=== PATIENT | female | born 1985 | race American Indian/Alaskan Native ===

== ENCOUNTER 2019-01-11 22:53 | Emergency (ER) | payer OTHER ==
--- NOTE | 2019-01-11 23:37 | Emergency Department Report ---
HPI - General Chief Complaint: Dizziness Time Seen by Provider: 01/11/19 23:29 - [facility] HPI: [place] 11 The patient is a 33-year-old female presenting with a chief complaint of feeling off balance and shortness of breath. The patient states for approximately days she has felt off balance but denies vertigo. Patient dishes also had intermittent shortness of breath but denies cough or chest pain. Patient denies headache fever nausea or vomiting. Patient denies previous episodes of same. Patient denies suicidal or homicidal ideation. Patient denies auditory or visual hallucinations. Location: [See above] Duration: [See above] Quality: [See above] Severity: [See above] Modifying factors: [see above] Context: [see above] Mode of transportation: [not driving] ED Past Medical Hx - Past Medical History Hx Psychiatric Treatment: Yes (schizoaffective disorder) Additional medical history: Beta thalassemia - Surgical History Past Surgical History?: No - Family History Family history: no significant - Social History Smoking Status: Current Every Day Smoker (1/2 pack per day) Substance Use Type: None (denies illicit drug use), Alcohol (occasional) - Medications Home Medications: Home Medications Medication Instructions Recorded Confirmed Last Taken Type Meclizine [Antivert] 25 mg PO TID PRN #20 tablet 01/12/19 Unknown Rx ED Review of Systems ROS: Stated complaint: WALKING FUNNY Other details as noted in HPI Constitutional: denies: fever Eyes: denies: eye pain ENT: denies: throat pain Respiratory: shortness of breath. denies: cough Cardiovascular: denies: chest pain Endocrine: no symptoms reported Gastrointestinal: denies: nausea, vomiting Genitourinary: denies: dysuria Musculoskeletal: denies: back pain Neurological: other (feels off balance). denies: headache, vertigo Psychiatric: denies: auditory hallucinations, visual hallucinations, homicidal thoughts, suicidal thoughts Physical Exam - Physical Exam Vital Signs: Laboratory Tests 01/12/19 01/12/19 01/12/19 00:08 00:08 00:08 WBC 7.2 RBC 4.11 Hgb 10.7 Hct 32.5 MCV 79 MCH 26 L MCHC 33 RDW 14.1 Plt Count 193 Lymph % (Auto) 34.0 Mills % (Auto) 8.3 H Eos % (Auto) 2.7 Baso % (Auto) 1.0 Lymph # 2.4 Mills # 0.6 Eos # 0.2 Baso # 0.1 Seg Neutrophils % 54.0 Seg Neutrophils # 3.9 D-Dimer Sodium 139 Potassium 3.9 Chloride 103.6 Carbon Dioxide 23 Anion Gap 16 BUN 9 Creatinine 0.6 L Estimated GFR > 60 BUN/Creatinine Ratio 15 Glucose 93 Calcium 9.2 Magnesium 1.80 Total Bilirubin 0.30 AST 10 ALT 8 Alkaline Phosphatase 70 Total Creatine Kinase CK-MB (CK-2) CK-MB (CK-2) Rel Index Troponin T NT-Pro-B Natriuret Pep Total Protein 6.4 Albumin 4.0 Albumin/Globulin Ratio 1.7 TSH 0.888 Free T4 1.05 HCG, Qual Urine Color Urine Turbidity Urine pH Ur Specific [place] Urine Protein Urine Glucose (UA) Urine Ketones Urine Blood Urine Nitrite Urine Bilirubin Urine Urobilinogen Ur Leukocyte Esterase Urine WBC (Auto) Urine RBC (Auto) U Epithel Cells (Auto) Urine Mucus Salicylates Urine Opiates Screen Urine Methadone Screen Acetaminophen Ur Barbiturates Screen Valproic Acid Ur Phencyclidine Scrn Ur Amphetamines Screen U Benzodiazepines Scrn Urine Cocaine Screen U Marijuana (THC) Screen Drugs of Abuse Note Plasma/Serum Alcohol 01/12/19 01/12/19 01/12/19 00:08 00:08 00:08 WBC RBC Hgb Hct MCV MCH MCHC RDW Plt Count Lymph % (Auto) Mills % (Auto) Eos % (Auto) Baso % (Auto) Lymph # Mills # Eos # Baso # Seg Neutrophils % Seg Neutrophils # D-Dimer Sodium Potassium Chloride Carbon Dioxide Anion Gap BUN Creatinine Estimated GFR BUN/Creatinine Ratio Glucose Calcium Magnesium Total Bilirubin AST ALT Alkaline Phosphatase Total Creatine Kinase CK-MB (CK-2) CK-MB (CK-2) Rel Index Troponin T NT-Pro-B Natriuret Pep Total Protein Albumin Albumin/Globulin Ratio TSH Free T4 HCG, Qual Urine Color Urine Turbidity Urine pH Ur Specific [place] Urine Protein Urine Glucose (UA) Urine Ketones Urine Blood Urine Nitrite Urine Bilirubin Urine Urobilinogen Ur Leukocyte Esterase Urine WBC (Auto) Urine RBC (Auto) U Epithel Cells (Auto) Urine Mucus Salicylates < 0.3 L Urine Opiates Screen Urine Methadone Screen Acetaminophen < 5.0 L Ur Barbiturates Screen Valproic Acid 19.0 L Ur Phencyclidine Scrn Ur Amphetamines Screen U Benzodiazepines Scrn Urine Cocaine Screen U Marijuana (THC) Screen Drugs of Abuse Note Plasma/Serum Alcohol < 0.01 01/12/19 01/12/19 01/12/19 00:08 00:08 00:08 WBC RBC Hgb Hct MCV MCH MCHC RDW Plt Count Lymph % (Auto) Mills % (Auto) Eos % (Auto) Baso % (Auto) Lymph # Mills # Eos # Baso # Seg Neutrophils % Seg Neutrophils # D-Dimer 228.31 Sodium Potassium Chloride Carbon Dioxide Anion Gap BUN Creatinine Estimated GFR BUN/Creatinine Ratio Glucose Calcium Magnesium Total Bilirubin AST ALT Alkaline Phosphatase Total Creatine Kinase 89 CK-MB (CK-2) < 1.0 CK-MB (CK-2) Rel Index 1.1 Troponin T < 0.010 NT-Pro-B Natriuret Pep 30.82 Total Protein Albumin Albumin/Globulin Ratio TSH Free T4 HCG, Qual Negative Urine Color Urine Turbidity Urine pH Ur Specific [place] Urine Protein Urine Glucose (UA) Urine Ketones Urine Blood Urine Nitrite Urine Bilirubin Urine Urobilinogen Ur Leukocyte Esterase Urine WBC (Auto) Urine RBC (Auto) U Epithel Cells (Auto) Urine Mucus Salicylates Urine Opiates Screen Urine Methadone Screen Acetaminophen Ur Barbiturates Screen Valproic Acid Ur Phencyclidine Scrn Ur Amphetamines Screen U Benzodiazepines Scrn Urine Cocaine Screen U Marijuana (THC) Screen Drugs of Abuse Note Plasma/Serum Alcohol 01/12/19 01/12/19 01:08 01:08 WBC RBC Hgb Hct MCV MCH MCHC RDW Plt Count Lymph % (Auto) Mills % (Auto) Eos % (Auto) Baso % (Auto) Lymph # Mills # Eos # Baso # Seg Neutrophils % Seg Neutrophils # D-Dimer Sodium Potassium Chloride Carbon Dioxide Anion Gap BUN Creatinine Estimated GFR BUN/Creatinine Ratio Glucose Calcium Magnesium Total Bilirubin AST ALT Alkaline Phosphatase Total Creatine Kinase CK-MB (CK-2) CK-MB (CK-2) Rel Index Troponin T NT-Pro-B Natriuret Pep Total Protein Albumin Albumin/Globulin Ratio TSH Free T4 HCG, Qual Urine Color Yellow Urine Turbidity Slightly-cloudy Urine pH 6.0 Ur Specific [place] 1.016 Urine Protein <15 mg/dl Urine Glucose (UA) Neg Urine Ketones Neg Urine Blood Neg Urine Nitrite Neg Urine Bilirubin Neg Urine Urobilinogen < 2.0 Ur Leukocyte Esterase Neg Urine WBC (Auto) 2.0 Urine RBC (Auto) 4.0 U Epithel Cells (Auto) 6.0 Urine Mucus 1+ Salicylates Urine Opiates Screen Presumptive negative Urine Methadone Screen Presumptive negative Acetaminophen Ur Barbiturates Screen Presumptive negative Valproic Acid Ur Phencyclidine Scrn Presumptive negative Ur Amphetamines Screen Presumptive negative U Benzodiazepines Scrn Presumptive negative Urine Cocaine Screen Presumptive negative U Marijuana (THC) Screen Presumptive positive Drugs of Abuse Note Disclamer Plasma/Serum Alcohol Physical Exam: GENERAL: The patient is well-developed well-nourished female sitting on stretcher not appearing to be in acute distress. Flat Affect HEENT: Normocephalic. Atraumatic. Extraocular motions are intact. Patient has moist mucous membranes. No nystagmus noted NECK: Supple. No meningitic signs are noted. Trachea midline CHEST/LUNGS: Clear to auscultation. There is no respiratory distress noted. HEART/CARDIOVASCULAR: Regular. There is no tachycardia. There is no gallop rub or murmur. ABDOMEN: Abdomen is soft, nontender. Patient has normal bowel sounds. There is no abdominal distention. SKIN: There is no rash. There is no edema. There is no diaphoresis. NEURO: The patient is awake, alert, and oriented. The patient is cooperative. The patient has no focal neurologic deficits. The patient has normal speech. Cranial nerves II through XII grossly intact, no drift. No dysmetria noted with [id number] bilaterally. Patient is able to ambulate but then appears to lean forward at the waist but never fall to the ground. Patient then turns around comes back and sits on the bed. MUSCULOSKELETAL: There is no evidence of acute injury. ED Medical Decision Making - Lab Data Result diagrams: 01/12/19 00:08 01/12/19 00:08 Laboratory Tests 01/12/19 01/12/19 01/12/19 00:08 00:08 00:08 WBC 7.2 RBC 4.11 Hgb 10.7 Hct 32.5 MCV 79 MCH 26 L MCHC 33 RDW 14.1 Plt Count 193 Lymph % (Auto) 34.0 Mills % (Auto) 8.3 H Eos % (Auto) 2.7 Baso % (Auto) 1.0 Lymph # 2.4 Mills # 0.6 Eos # 0.2 Baso # 0.1 Seg Neutrophils % 54.0 Seg Neutrophils # 3.9 D-Dimer Sodium 139 Potassium 3.9 Chloride 103.6 Carbon Dioxide 23 Anion Gap 16 BUN 9 Creatinine 0.6 L Estimated GFR > 60 BUN/Creatinine Ratio 15 Glucose 93 Calcium 9.2 Magnesium 1.80 Total Bilirubin 0.30 AST 10 ALT 8 Alkaline Phosphatase 70 Total Creatine Kinase CK-MB (CK-2) CK-MB (CK-2) Rel Index Troponin T NT-Pro-B Natriuret Pep Total Protein 6.4 Albumin 4.0 Albumin/Globulin Ratio 1.7 TSH 0.888 Free T4 1.05 HCG, Qual Urine Color Urine Turbidity Urine pH Ur Specific [place] Urine Protein Urine Glucose (UA) Urine Ketones Urine Blood Urine Nitrite Urine Bilirubin Urine Urobilinogen Ur Leukocyte Esterase Urine WBC (Auto) Urine RBC (Auto) U Epithel Cells (Auto) Urine Mucus Salicylates Urine Opiates Screen Urine Methadone Screen Acetaminophen Ur Barbiturates Screen Valproic Acid Ur Phencyclidine Scrn Ur Amphetamines Screen U Benzodiazepines Scrn Urine Cocaine Screen U Marijuana (THC) Screen Drugs of Abuse Note Plasma/Serum Alcohol 01/12/19 01/12/19 01/12/19 00:08 00:08 00:08 WBC RBC Hgb Hct MCV MCH MCHC RDW Plt Count Lymph % (Auto) Mills % (Auto) Eos % (Auto) Baso % (Auto) Lymph # [place] # Eos # Baso # Seg Neutrophils % Seg Neutrophils # D-Dimer Sodium Potassium Chloride Carbon Dioxide Anion Gap BUN Creatinine Estimated GFR BUN/Creatinine Ratio Glucose Calcium Magnesium Total Bilirubin AST ALT Alkaline Phosphatase Total Creatine Kinase CK-MB (CK-2) CK-MB (CK-2) Rel Index Troponin T NT-Pro-B Natriuret Pep Total Protein Albumin Albumin/Globulin Ratio TSH Free T4 HCG, Qual Urine Color Urine Turbidity Urine pH Ur Specific [place] Urine Protein Urine Glucose (UA) Urine Ketones Urine Blood Urine Nitrite Urine Bilirubin Urine Urobilinogen Ur Leukocyte Esterase Urine WBC (Auto) Urine RBC (Auto) U Epithel Cells (Auto) Urine Mucus Salicylates < 0.3 L Urine Opiates Screen Urine Methadone Screen Acetaminophen < 5.0 L Ur Barbiturates Screen Valproic Acid 19.0 L Ur Phencyclidine Scrn Ur Amphetamines Screen U Benzodiazepines Scrn Urine Cocaine Screen U Marijuana (THC) Screen Drugs of Abuse Note Plasma/Serum Alcohol < 0.01 01/12/19 01/12/19 01/12/19 00:08 00:08 00:08 WBC RBC Hgb Hct MCV MCH MCHC RDW Plt Count Lymph % (Auto) Mills % (Auto) Eos % (Auto) Baso % (Auto) Lymph # [place] # Eos # Baso # Seg Neutrophils % Seg Neutrophils # D-Dimer 228.31 Sodium Potassium Chloride Carbon Dioxide Anion Gap BUN Creatinine Estimated GFR BUN/Creatinine Ratio Glucose Calcium Magnesium Total Bilirubin AST ALT Alkaline Phosphatase Total Creatine Kinase 89 CK-MB (CK-2) < 1.0 CK-MB (CK-2) Rel Index 1.1 Troponin T < 0.010 NT-Pro-B Natriuret Pep 30.82 Total Protein Albumin Albumin/Globulin Ratio TSH Free T4 HCG, Qual Negative Urine Color Urine Turbidity Urine pH Ur Specific [place] Urine Protein Urine Glucose (UA) Urine Ketones Urine Blood Urine Nitrite Urine Bilirubin Urine Urobilinogen Ur Leukocyte Esterase Urine WBC (Auto) Urine RBC (Auto) U Epithel Cells (Auto) Urine Mucus Salicylates Urine Opiates Screen Urine Methadone Screen Acetaminophen Ur Barbiturates Screen Valproic Acid Ur Phencyclidine Scrn Ur Amphetamines Screen U Benzodiazepines Scrn Urine Cocaine Screen U Marijuana (THC) Screen Drugs of Abuse Note Plasma/Serum Alcohol 01/12/19 07 01:08 01:08 WBC RBC Hgb Hct MCV MCH MCHC RDW Plt Count Lymph % (Auto) Mills % (Auto) Eos % (Auto) Baso % (Auto) Lymph # [place] # Eos # Baso # Seg Neutrophils % Seg Neutrophils # D-Dimer Sodium Potassium Chloride Carbon Dioxide Anion Gap BUN Creatinine Estimated GFR BUN/Creatinine Ratio Glucose Calcium Magnesium Total Bilirubin AST ALT Alkaline Phosphatase Total Creatine Kinase CK-MB (CK-2) CK-MB (CK-2) Rel Index Troponin T NT-Pro-B Natriuret Pep Total Protein Albumin Albumin/Globulin Ratio TSH Free T4 HCG, Qual Urine Color Yellow Urine Turbidity Slightly-cloudy Urine pH 6.0 Ur Specific [place] 1.016 Urine Protein <15 mg/dl Urine Glucose (UA) Neg Urine Ketones Neg Urine Blood Neg Urine Nitrite Neg Urine Bilirubin Neg Urine Urobilinogen < 2.0 Ur Leukocyte Esterase Neg Urine WBC (Auto) 2.0 Urine RBC (Auto) 4.0 U Epithel Cells (Auto) 6.0 Urine Mucus 1+ Salicylates Urine Opiates Screen Presumptive negative Urine Methadone Screen Presumptive negative Acetaminophen Ur Barbiturates Screen Presumptive negative Valproic Acid Ur Phencyclidine Scrn Presumptive negative Ur Amphetamines Screen Presumptive negative U Benzodiazepines Scrn Presumptive negative Urine Cocaine Screen Presumptive negative U Marijuana (THC) Screen Presumptive positive Drugs of Abuse Note Disclamer Plasma/Serum Alcohol - EKG Data -: EKG Interpreted by Me EKG shows normal: sinus rhythm Rate: normal - EKG Data When compared to previous EKG there are: previous EKG unavailable Interpretation: other (no ischemic changes seen) - Radiology Data Radiology results: report reviewed (CT head), image reviewed (CT head, chest x- ray) interpreted by me: Chest x-ray-no focal infiltrates, no pneumothorax [facility] [address] [place] [address] Cat Scan Report Signed Patient: SIM CLEVELAND MR# : [id number] : 1985 Acct:[id number] Age/Sex: 33 / F ADM Date: 01/11/19 Loc: ED Attending Dr: Ordering Physician: NANCI CAMACHO MD Date of Service: 01/12/19 Procedure(s): CT head/brain wo con Accession Number(s): [id number] cc: NANCI CAMACHO MD PROCEDURE: CT HEAD/BRAIN WO CON TECHNIQUE: Computerized tomography of the head was performed without contrast material. HISTORY: feels off balance COMPARISONS: 07/02/2010 . FINDINGS: The cerebral hemispheres appear normal wit hout focal lesions. There is no evidence of acute infarct or intracranial hemorrhage. The ventricles and sulci appear normal for age. There are no abnormal extra-axial fluid collections. The posterior fossa appears normal. The skull and orbits are unremarkable. The visualized paranasal sinuses are clear. IMPRESSION: Normal CT of the head . This document is electronically signed by Cliff Patel MD., January 12 2019 02:31:08 AM ET Transcribed By: MLG Dictated By: CLIFF PATEL MD Electronically Authenticated By: CLIFF PATEL MD Signed Date/Time: 01/12/19231 DD/ 2 TD/TT: 01/12/19142 - Differential Diagnosis Depakote toxicity, vertigo, intracranial mass, PE, bronchitis Critical care attestation.: If time is entered above; I have spent that time in minutes in the direct care of this critically ill patient, excluding procedure time. ED Disposition Clinical Impression: Dehydration Disposition: DC-01 TO HOME OR SELFCARE Is pt being admited?: No Does the pt Need Aspirin: No Condition: Stable Instructions: Vertigo (ED) Additional Instructions: Return to the emergency department immediately should you develop worsening symptoms, fever, inability to tolerate food or liquid or any other concerns. Prescriptions: Meclizine [Antivert] 25 mg PO TID PRN #20 tablet PRN Reason: Vertigo Referrals: MARC FRANCE MD [Primary Care Provider] - 3-5 Days Time of Disposition: 05:47
[2019-01-12 00:47] LABS: Basophils # (Auto) 0.1 K/mm3 (0.0-0.1); Eosinophils # (Auto) 0.2 K/mm3 (0.0-0.4); Eosinophils % (Auto) 2.7 % (0.0-4.3); Hematocrit 32.5 % (30.3-42.9); Hemoglobin 10.7 gm/dl (10.1-14.3); Lymphocytes # (Auto) 2.4 K/mm3 (1.2-5.4); Mean Corpuscular HGB Conc 33 % (30-34); Mean Corpuscular Volume 79 fl (79-97); Monocytes # (Auto) 0.6 K/mm3 (0.0-0.8); Monocytes % (Auto) 8.3 % (0.0-7.3); Platelet Count 193 K/mm3 (140-440); Red Blood Count 4.11 M/mm3 (3.65-5.03); Red Cell Distribution Width 14.1 % (13.2-15.2)
[2019-01-12 01:07] LABS: Alanine Aminotransferase 8 units/L (7-56); BUN/Creatinine Ratio 15; Blood Urea Nitrogen 9 mg/dL (7-17); Calcium 9.2 mg/dL (8.4-10.2); Hemolysis Index 5
[2019-01-12 01:11] LABS: Creatine Kinase MB < 1.0 ng/mL (0.0-4.0)
[2019-01-12 01:13] LABS: Free T4 (Free Thyroxine) 1.05 ng/dL (0.76-1.46)
[2019-01-12 02:06] LABS: Bilirubin,Urine NEG (Negative); Blood,Urine NEG (Negative); Color,Urine Yellow (Yellow); Mucus,Urine 1+ /HPF; Protein,Urine <15 mg/dL mg/dL (Negative); Urobilinogen,Urine < 2.0 mg/dL (<2.0)
--- NOTE | 2019-01-12 02:32 | Cat Scan Report ---
PROCEDURE: CT HEAD/BRAIN WO CON TECHNIQUE: Computerized tomography of the head was performed without contrast material. HISTORY: feels off balance COMPARISONS: 07/02/2010 . FINDINGS: The cerebral hemispheres appear normal without focal lesions. There is no evidence of acute infarct or intracranial hemorrhage. The ventricles and sulci appear normal for age. There are no abn ormal extra-axial fluid collections. The posterior fossa appears normal. The skull and orbits are unr emarkable. The visualized paranasal sinuses are clear. IMPRESSION: Normal CT of the head . This document is electronically signed by Rhonda Patel MD., January 12 2019 02:31:08 AM ET
[2019-01-12 03:16] LABS: Amphetamine Screen,Urine PRESUMPTIVE NEGATIVE; Benzodiazepines Screen,Urine PRESUMPTIVE NEGATIVE; Cocaine Screen,Urine PRESUMPTIVE NEGATIVE; Methadone Screen,Urine PRESUMPTIVE NEGATIVE; Opiate Screen,Urine PRESUMPTIVE NEGATIVE
[2019-01-12 03:52] VITALS: BP 112/70
[2019-01-12 03:58] LABS: Cannabinoid Screen,Urine PRESUMPTIVE POSITIVE
[2019-01-12] MEDS ORDERED: NACL 0.9% 1000 ML 1,000 ML IV ONE (04:25)
--- NOTE | 2019-01-12 04:35 | XRay Report ---
PROCEDURE: XR CHEST ROUTINE 2V TECHNIQUE: PA and lateral chest radiographs were obtained. HISTORY: shortness of breath COMPARISONS: None. FINDINGS: No mediastinal shift. Cardiac silhouette is not enlarged. No pneumothorax or definite effusion. Pat bree posterior right lower lung opacity. No acute skeletal finding. IMPRESSION: Posterior right lower lung infiltrate. This document is electronically signed by Bryan Chu MD., January 12 2019 04:33:05 AM ET
== END 2019-01-12 06:09 | disposition home or self-care (01) ==
LOC: ED 22:53
DX: R06.02 Shortness of breath (principal); R26.89 Other abnormalities of gait and mobility; E86.0 Dehydration; F17.200 Nicotine dependence, unspecified, uncomplicated; F25.9 Schizoaffective disorder, unspecified
CPT/HCPCS: 36415; 70450; 71046; 80053; 80164; 80307; 81001; 82550; 82553; 83735; 83880; 84439; 84443; 84484; 84703; 85025; 85379; 93005; 93010; 96360; 99285; G0480; J7030; 80320

== ENCOUNTER 2019-01-12 16:33 | Emergency (ER) | payer OTHER ==
[2019-01-12] MEDS ORDERED: TORADOL IM ONE (20:26)
[2019-01-12] MEDS ORDERED: DELTASONE PO ONE (20:26)
[2019-01-12 21:13] VITALS: BP 99/68
--- NOTE | 2019-01-13 02:11 | Cat Scan Report ---
CT lumbar spine wo con INDICATION / CLINICAL INFORMATION: BACK PAIN. TECHNIQUE: Axial CT imaging of the lumbar spine was obtained without IV contrast. Coronal and sagittal reformatt ed imaging obtained and reviewed. All CT scans at this location are performed using CT dose reduction for ALARA by means of automated exposure control. COMPARISON: None available. FINDINGS: Vertebral body heights and disc spaces are preserved. Alignment is normal. I see no evidence for lumb ar spine fracture or traumatic malalignment. Surrounding paravertebral soft tissues are unremarkable. No obvious large disc herniation. If disc herniation is a clinical concern, MRI is suggested. IMPRESSION: 1. Negative lumbar spine CT. Signer Name: Karen Rivera MD Signed: 01/13/2019 2:06 AM Workstation Name: [employer]
--- NOTE | 2019-01-13 02:38 | Emergency Department Report ---
ED General Adult HPI - General Chief complaint: Weakness Stated complaint: WEAKNESS Source: patient Mode of arrival: Wheelchair Limitations: No Limitations - History of Present Illness Initial comments: Patient is a 33-year-old female with a history of schizoaffective schizophrenia, and chronic low back pain who presents to the ED with acute exacerbation of her chronic pain that radiates bilaterally to the lower extremities for the last 1 week worse in the last 2 days. Patient states that the pain is constant but the radiation is intermittent. Patient denies hematuria, fall, dysuria, urinary frequency and urgency, history of lifting, traumatic injury, neck pain, abdominal pain, bilateral lower extremity weakness or urinary and bowel incontinence or saddle paresthesia MD Complaint: Back pain -: Gradual, year(s) Location: back Radiation: other (radiates to lower extremities) Severity scale (0 -10): 10 Quality: aching, sharp Consistency: constant Improves with: medication, rest Worsens with: movement Associated Symptoms: denies other symptoms. denies: confusion, chest pain, cough, diaphoresis, fever/chills, headaches, loss of appetite, malaise, shortness of breath, syncope, weakness, other Treatments Prior to Arrival: none - Related Data Previous Rx's Medication Instructions Recorded Last Taken Type Meclizine [Antivert] 25 mg PO TID PRN #20 tablet 01/12/19 Unknown Rx Gabapentin [Neurontin] 300 mg PO Q12H #30 cap 01/13/19 Unknown Rx Ibuprofen [Motrin] 800 mg PO Q8HR PRN #20 tablet 01/13/19 Unknown Rx Tizanidine HCl [Zanaflex 4mg CAP] 4 mg PO Q8H PRN #21 capsule 01/13/19 Unknown Rx predniSONE [Deltasone] 60 mg PO QDAY #15 tab 01/13/19 Unknown Rx Allergies Allergy/AdvReac Type Severity Reaction Status Date / Time No Known Allergies Allergy Verified 01/11/19 23:25 ED Review of Systems ROS: Stated complaint: WEAKNESS Other details as noted in HPI Constitutional: no symptoms reported. denies: chills, fever Eyes: denies: eye pain, eye discharge, vision change ENT: denies: ear pain, throat pain Respiratory: denies: cough, shortness of breath, wheezing Cardiovascular: denies: chest pain, palpitations Endocrine: no symptoms reported Gastrointestinal: denies: abdominal pain, nausea, diarrhea Genitourinary: denies: urgency, dysuria, discharge Musculoskeletal: back pain, arthralgia, myalgia. denies: joint swelling Skin: denies: rash, lesions Neurological: denies: headache, weakness, paresthesias Psychiatric: denies: anxiety, depression Hematological/Lymphatic: denies: easy bleeding, easy bruising ED Past Medical Hx - Past Medical History Previous Medical History?: Yes Hx Psychiatric Treatment: Yes (schizoaffective disorder) Additional medical history: Beta thalassemia - Social History Smoking Status: Current Every Day Smoker Substance Use Type: None - Medications Home Medications: Home Medications Medication Instructions Recorded Confirmed Last Taken Type Meclizine [Antivert] 25 mg PO TID PRN #20 tablet 01/12/19 Unknown Rx Gabapentin [Neurontin] 300 mg PO Q12H #30 cap 01/13/19 Unknown Rx Ibuprofen [Motrin] 800 mg PO Q8HR PRN #20 tablet 01/13/19 Unknown Rx Tizanidine HCl [Zanaflex 4mg CAP] 4 mg PO Q8H PRN #21 capsule 01/13/19 Unknown Rx predniSONE [Deltasone] 60 mg PO QDAY #15 tab 01/13/19 Unknown Rx ED Physical Exam - General Limitations: No Limitations General appearance: alert, in no apparent distress - Head Head exam: Present: atraumatic, normocephalic, normal inspection - Eye Eye exam: Present: normal appearance, PERRL, EOMI - ENT ENT exam: Present: normal exam, normal orophraynx, mucous membranes moist, TM's normal bilaterally - Neck Neck exam: Present: normal inspection, full ROM - Respiratory Respiratory exam: Present: normal lung sounds bilaterally. Absent: respiratory distress, wheezes, rales, chest wall tenderness, accessory muscle use, decreased breath sounds, prolonged expiratory - Cardiovascular Cardiovascular Exam: Present: regular rate, normal rhythm, normal heart sounds. Absent: systolic murmur, diastolic murmur, rubs, gallop - GI/Abdominal GI/Abdominal exam: Present: soft, normal bowel sounds. Absent: tenderness, guarding, rebound, hyperactive bowel sounds, hypoactive bowel sounds, organomegaly - Rectal Rectal exam: Present: deferred - Extremities Exam Extremities exam: Present: normal inspection - Back Exam Back exam: Present: normal inspection, tenderness (palpable lumbosacral paraspinal musculoskeletal tenderness), muscle spasm, paraspinal tenderness - Neurological Exam Neurological exam: Present: alert, oriented X3, CN II-XII intact, normal gait, reflexes normal - Psychiatric Psychiatric exam: Present: normal affect, normal mood, anxious - Skin Skin exam: Present: warm, dry, intact, normal color. Absent: rash ED Course Vital Signs 01/12/19 01/12/19 01/12/19 16:48 21:12 21:48 Temperature 98.3 F 98.3 F Pulse Rate 89 73 Respiratory 18 16 18 Rate Blood Pressure 112/83 Blood Pressure 99/68 [Right] O2 Sat by Pulse 100 99 Oximetry - Reevaluation(s) Reevaluation #1: 01/13/19 02:39 Patient is alert and oriented 3 and is not in distress with pain. Patient was treated for pain in the ED and L-spine CT scanning without contrast shows no acute fractures or subluxations. On reevaluation, patient's pain is well controlled and fell asleep in the room but arousable. ED Medical Decision Making - Radiology Data Radiology results: report reviewed, image reviewed L-Spine CT Scan w/o contrast shows no acute fractures or subluxations - Medical Decision Making Patient is alert and oriented 3 and is not in distress with pain. Patient was treated for pain in the ED and L-spine CT scanning without contrast shows no acute fractures or subluxations. On reevaluation, patient's pain is well controlled and fell asleep in the room but arousable. - Differential Diagnosis Chronic back pain; Lumbar radiculopathy Critical care attestation.: If time is entered above; I have spent that time in minutes in the direct care of this critically ill patient, excluding procedure time. ED Disposition Clinical Impression: Chronic osteoarthritis, Spasm of muscle of lower back Chronic low back pain with bilateral sciatica Qualifiers: Back pain laterality: bilateral Qualified Code(s): M54.42 - Lumbago with sciatica, left side; M54.41 - Lumbago with sciatica, right side; G89.29 - Other chronic pain Disposition: - TO HOME OR SELFCARE Is pt being admited?: No Does the pt Need Aspirin: No Condition: Stable Instructions: Lumbar Radiculopathy (ED), Arthralgia (ED), Muscle Spasm (ED), Sciatica (ED), Chronic Back Pain (ED) Additional Instructions: Take medications with food, drink plenty of fluids and follow up with your primary care physician at [facility] for further evaluation in 5-7 days Prescriptions: predniSONE [Deltasone] 60 mg PO QDAY #15 tab Ibuprofen [Motrin] 800 mg PO Q8HR PRN #20 tablet PRN Reason: Pain , Severe (7-10) Gabapentin [Neurontin] 300 mg PO Q12H #30 cap Tizanidine HCl [Zanaflex 4mg CAP] 4 mg PO Q8H PRN #21 capsule PRN Reason: Spasms Referrals: MARC FRANCE MD [Primary Care Provider] - 3-5 Days Time of Disposition: 02:47 Print Language: AUSTRIAN
== END 2019-01-13 04:45 | disposition home or self-care (01) ==
LOC: ED 16:33
DX: M62.830 Muscle spasm of back (principal); M54.42 Lumbago with sciatica, left side; M54.41 Lumbago with sciatica, right side; G89.29 Other chronic pain; M19.90 Unspecified osteoarthritis, unspecified site; F17.200 Nicotine dependence, unspecified, uncomplicated; F25.9 Schizoaffective disorder, unspecified; D56.9 Thalassemia, unspecified
CPT/HCPCS: 72131; 96372; 99284; J1885; J7512